=== PATIENT | male | born 1940 | race Caucasian/White ===

== ENCOUNTER 2023-04-02 00:21 | Emergency (ER) | payer MEDICARE ==
[2023-04-02] MEDS ORDERED: Sodium Chloride 0.9% 10 ML Syringe FLUSH PRN (00:28)
[2023-04-02 00:45] LABS: BASOPHILS ABSOLUTE AUTO 0.06 K/uL (0.00-0.10); BASOPHILS PERCENT AUTO 0.7 % (0.1-1.3); EOSINOPHILS ABSOLUTE AUTO 0.32 K/uL (0.00-0.40); EOSINOPHILS PERCENT AUTO 3.8 % (0.0-5.4); HEMATOCRIT 37.5 % (38.4-49.7); IMMATURE GRAN ABSOLUTE AUTO 0.03 K/uL (0.00-0.23); IMMATURE GRAN PERCENT AUTO 0.4 % (0.0-0.7); LYMPHOCYTES ABSOLUTE AUTO 1.47 K/uL (0.8-3.3); LYMPHOCYTES PERCENT AUTO 17.3 % (11.4-47.7); MEAN CORPUSCULAR HEMOGLOBIN 30.5 pg (31.6-35.5); MEAN CORPUSCULAR HGB CONC 34.7 g/dL (31.6-35.5); MONOCYTES ABSOLUTE AUTO 0.71 K/uL (0.20-0.90); MONOCYTES PERCENT AUTO 8.4 % (3.3-12.6); NEUTROPHILS ABSOLUTE AUTO 5.89 K/uL (1.0-7.6); NEUTROPHILS PERCENT AUTO 69.4 % (40.0-78.1); PLATELET COUNT,PLT 166 K/uL (130-375); RED BLOOD CELL COUNT 4.26 M/uL (4.14-5.76); WHITE BLOOD CELL COUNT,WBC 8.5 K/uL (3.2-11.0)
[2023-04-02] MEDS ORDERED: Sodium Chloride 0.9% 1,000 ML IV SCH (01:00)
[2023-04-02 01:07] LABS: A/G RATIO 1.1 (1.2-2.2); ALANINE AMINOTRANSFERASE,ALT 33 U/L (12-78); ALBUMIN 3.7 g/dL (3.4-5.0); ALKALINE PHOSPHATASE 137 U/L (46-116); ASPARTATE AMNIOTRANSFERASE,AST 25 U/L (15-37); BILIRUBIN TOTAL 0.6 mg/dL (0.2-1.0); BLOOD UREA NITROGEN,BUN 18 mg/dL (7-18); CALCIUM 8.6 mg/dL (8.5-10.1); CARBON DIOXIDE,CO2 23 mmol/L (21-32); CHLORIDE,CL 99 mmol/L (100-108); CREATININE 1.2 mg/dL (0.8-1.3); EST CRCL DRUG DOSING (CG) 46.64 mL/min; ESTIMATED GFR 60 mL/min (>60); GLUCOSE RANDOM 117 mg/dL (74-106); POTASSIUM,K 3.7 mmol/L (3.6-5.2); PRO B-TYPE NATRIUR PEPT,BNPPRO 89 pg/mL (5-450); SODIUM,NA 132 mmol/L (140-148); TROPONIN I HIGH SENSITIVITY 11.7 pg/mL (<=60.3)
[2023-04-02 01:09] LABS: ANION GAP 13.7 mmol/L (5.0-14.0)
[2023-04-02 01:19] LABS: APPEARANCE,URINE CLEAR (CLEAR); BILIRUBIN,URINE NEGATIVE (NEGATIVE); COLOR,URINE YELLOW (YELLOW); GLUCOSE,URINE NEGATIVE (NEGATIVE); KETONES,URINE TRACE mg/dL (NEGATIVE); LEUKOCYTE ESTERASE,URINE NEGATIVE (NEGATIVE); NITRITE,URINE NEGATIVE (NEGATIVE); OCCULT BLOOD,URINE NEGATIVE (NEGATIVE); PROTEIN,URINE 100 mg/dL (NEGATIVE); UROBILINOGEN,URINE 0.2 EU/dL (0.2-1.0)
[2023-04-02 01:30] LABS: AMORPHOUS SEDIMENT,URINE NOT SEEN; BACTERIA,URINE FEW; EPITHELIAL CELLS,URINE FEW; MUCUS,URINE FEW; RBC,URINE 0-5 (0-5); WBC,URINE 0-5 (0-5)
== END 2023-04-02 03:27 | disposition home or self-care (01) ==
LOC: JP.ED 00:21
DX: R55 Syncope and collapse (principal); Z79.82 Long term (current) use of aspirin
CPT/HCPCS: 36415; 80053; 81001; 83880; 84484; 85025; 93005; 96360; 96361; 99284; J3490; J7030

== ENCOUNTER 2024-02-09 22:27 | Emergency (ER) | payer MEDICARE ==
[2024-02-09] MEDS ORDERED: Sodium Chloride 0.9% 10 ML Syringe FLUSH PRN (23:02)
[2024-02-09 23:18] LABS: INR 1.1; PROTHROMBIN TIME 11.5 sec (9.2-10.6)
[2024-02-09 23:21] LABS: ALANINE AMINOTRANSFERASE,ALT 84 U/L (12-78); ALBUMIN 3.4 g/dL (3.4-5.0); ALKALINE PHOSPHATASE 125 U/L (46-116); ASPARTATE AMNIOTRANSFERASE,AST 69 U/L (15-37); BILIRUBIN TOTAL 0.5 mg/dL (0.2-1.0); BLOOD UREA NITROGEN,BUN 15 mg/dL (7-18); CALCIUM 8.7 mg/dL (8.5-10.1); CARBON DIOXIDE,CO2 22 mmol/L (21-32); CHLORIDE,CL 98 mmol/L (100-108); CREATININE 1.3 mg/dL (0.8-1.3); EST CRCL DRUG DOSING (CG) 46.43 mL/min; ESTIMATED GFR 54 mL/min (>60); GLUCOSE RANDOM 141 mg/dL (74-106); POTASSIUM,K 3.9 mmol/L (3.6-5.2); PROTEIN TOTAL,TP 6.7 g/dL (6.4-8.2); SODIUM,NA 133 mmol/L (140-148)
[2024-02-09 23:24] LABS: HEMOGLOBIN 10.1 g/dL (12.9-16.9); PLATELET COUNT,PLT 184 K/uL (130-375)
[2024-02-09 23:25] LABS: BAND PERCENT MAN 2 % (5-11); EOSINOPHILS PERCENT MAN 2 % (2-4); LYMPHOCYTES PERCENT MAN 28 % (24-44); MONOCYTES PERCENT MAN 9 % (2-6); SEG NEUTROPHILS PERCENT MAN 58 % (36-66)
[2024-02-09] MEDS: Tenecteplase 50 MG Kit IVPUSH ONE (23:26)
[2024-02-09 23:27] LABS: ANION GAP 16.9 mmol/L (5.0-14.0)
== END 2024-02-09 23:40 | disposition other institution (70) ==
LOC: JP.ED 22:27
DX: I63.9 Cerebral infarction, unspecified (principal); I10 Essential (primary) hypertension; E78.00 Pure hypercholesterolemia, unspecified; Z79.899 Other long term (current) drug therapy; Z88.8 Allergy status to other drugs, medicaments and biological substances
CPT/HCPCS: 36415; 51702; 70450; 80053; 85004; 85018; 85049; 85610; 85730; 93005; 99285; J3101; 93010

== ENCOUNTER 2024-02-25 12:55 | Inpatient (IN) | payer MEDICARE ==
[2024-02-25] MEDS: Sodium Chloride 0.9% 1,000 ML IV ONE (14:10)
[2024-02-25 14:16] LABS: BASOPHILS PERCENT AUTO 0.2 % (0.1-1.3); HEMOGLOBIN 8.9 g/dL (12.9-16.9); IMMATURE GRAN ABSOLUTE AUTO 0.03 K/uL (0.00-0.23); IMMATURE GRAN PERCENT AUTO 0.5 % (0.0-0.7); LYMPHOCYTES ABSOLUTE AUTO 0.99 K/uL (0.8-3.3); MEAN CORPUSCULAR HEMOGLOBIN 25.2 pg (31.6-35.5); MEAN CORPUSCULAR HGB CONC 35.6 g/dL (31.6-35.5); MEAN CORPUSCULAR VOLUME 70.8 fL (81.4-99.0); MONOCYTES ABSOLUTE AUTO 0.81 K/uL (0.20-0.90); MONOCYTES PERCENT AUTO 14.1 % (3.3-12.6); NEUTROPHILS ABSOLUTE AUTO 3.89 K/uL (1.0-7.6); NEUTROPHILS PERCENT AUTO 67.9 % (40.0-78.1); PLATELET COUNT,PLT 80 K/uL (130-375); WHITE BLOOD CELL COUNT,WBC 5.7 K/uL (3.2-11.0)
[2024-02-25 14:18] LABS: BASOPHILS ABSOLUTE AUTO 0.01 K/uL (0.00-0.10)
[2024-02-25 14:38] LABS: A/G RATIO 0.8 (1.2-2.2); ALANINE AMINOTRANSFERASE,ALT 90 U/L (12-78); ALBUMIN 2.8 g/dL (3.4-5.0); ALKALINE PHOSPHATASE 110 U/L (46-116); ASPARTATE AMNIOTRANSFERASE,AST 99 U/L (15-37); BILIRUBIN TOTAL 1.2 mg/dL (0.2-1.0); BLOOD UREA NITROGEN,BUN 19 mg/dL (7-18); CARBON DIOXIDE,CO2 22 mmol/L (21-32); CHLORIDE,CL 84 mmol/L (100-108); CREATININE 1.5 mg/dL (0.8-1.3); ESTIMATED GFR 46 mL/min (>60); GLUCOSE RANDOM 140 mg/dL (74-106); POTASSIUM,K 3.8 mmol/L (3.6-5.2); PROTEIN TOTAL,TP 6.5 g/dL (6.4-8.2)
[2024-02-25 14:44] LABS: C-REACTIVE PROTEIN 16.26 mg/dL (<0.50); TROPONIN I HIGH SENSITIVITY 21.8 pg/mL (<=60.3)
[2024-02-25 14:49] LABS: ANION GAP 14.8 mmol/L (5.0-14.0)
[2024-02-25 14:50] LABS: SODIUM,NA 117 mmol/L (140-148)
[2024-02-25 14:52] LABS: LYMPHOCYTES PERCENT AUTO 17.3 % (11.4-47.7); RED BLOOD CELL COUNT 3.53 M/uL (4.14-5.76)
[2024-02-25] MEDS: Sodium Chloride 0.9% 100 ML IV SCH (15:12)
[2024-02-25] MEDS: Iopamidol 755 Mg/ML 100 ML Bottle IV ONE (15:12)
[2024-02-25 16:03] LABS: LYME AB IgG Negative (Negative)
[2024-02-25 16:04] LABS: LYME AB IgM Positive (Negative)
[2024-02-25] MEDS ORDERED: Magnesium Hydroxide 400 MG/5 ML Susp 30 ML Cup PO PRN (17:30)
[2024-02-25] MEDS ORDERED: Albuterol 0.083% 2.5 MG/3 ML Neb Soln NEB PRN (17:30)
[2024-02-25] MEDS ORDERED: Ondansetron 4 MG Tab.DIS PO PRN (17:30)
[2024-02-25] MEDS ORDERED: oxyCODONE 5 MG Tab PO PRN (17:30)
[2024-02-25] MEDS ORDERED: Ondansetron 4 MG/2 ML SDV IV PRN (17:30)
[2024-02-25] MEDS ORDERED: Sennosides/Docusate Sodium 50-8.6 MG Tab PO PRN (17:30)
[2024-02-25] MEDS: Sodium Chloride 0.9% 1,000 ML IV SCH ×2 (18:13→20:50)
[2024-02-25] MEDS: Doxycycline 100 MG Cap PO SCH (18:16)
[2024-02-25] MEDS: Azithromycin 250 MG Tab PO ONE (18:16)
[2024-02-25] MEDS: Acetaminophen 325 MG Tab PO PRN (18:58)
[2024-02-25 20:16] LABS: CALCIUM 7.4 mg/dL (8.5-10.1); CREATININE 1.4 mg/dL (0.8-1.3); EST CRCL DRUG DOSING (CG) 39.28 mL/min; POTASSIUM,K 3.1 mmol/L (3.6-5.2)
[2024-02-25 20:21] LABS: ANION GAP 13.1 mmol/L (5.0-14.0)
[2024-02-25] MEDS: Atovaquone 750 MG/5 ML Susp 5 ML Packet PO SCH (20:34)
[2024-02-25] MEDS: Carvedilol 12.5 MG Tab PO SCH (20:38)
[2024-02-25] MEDS: Lactobacillus Rhamnosus GG (Probiotic) Cap PO SCH (20:41)
[2024-02-25] MEDS: Potassium Chloride 10 MEQ in Premix Bag 1 BAG IV ONE (21:21)
[2024-02-25] MEDS: Potassium Chloride 20 MEQ Tab.ER PO ONE (21:24)
[2024-02-25] MEDS: Magnesium Sulfate/Water 2 GM in Premix Bag 1 BAG IV SCH (22:32)
[2024-02-26 01:22] LABS: CALCIUM 7.3 mg/dL (8.5-10.1); CREATININE 1.5 mg/dL (0.8-1.3); EST CRCL DRUG DOSING (CG) 36.66 mL/min; POTASSIUM,K 3.1 mmol/L (3.6-5.2)
[2024-02-26 01:28] LABS: ANION GAP 10.1 mmol/L (5.0-14.0)
[2024-02-26 06:05] LABS: HEMATOCRIT 21.9 % (38.4-49.7); HEMOGLOBIN 7.7 g/dL (12.9-16.9); MEAN CORPUSCULAR HEMOGLOBIN 25.3 pg (31.6-35.5); MEAN CORPUSCULAR HGB CONC 35.2 g/dL (31.6-35.5); RED BLOOD CELL COUNT 3.04 M/uL (4.14-5.76); WHITE BLOOD CELL COUNT,WBC 4.6 K/uL (3.2-11.0)
[2024-02-26 06:24] LABS: A/G RATIO 0.7 (1.2-2.2); ALANINE AMINOTRANSFERASE,ALT 99 U/L (12-78); ALBUMIN 2.3 g/dL (3.4-5.0); ALKALINE PHOSPHATASE 116 U/L (46-116); ASPARTATE AMNIOTRANSFERASE,AST 104 U/L (15-37); BILIRUBIN TOTAL 0.8 mg/dL (0.2-1.0); BLOOD UREA NITROGEN,BUN 16 mg/dL (7-18); CALCIUM 7.6 mg/dL (8.5-10.1); CARBON DIOXIDE,CO2 22 mmol/L (21-32); CHLORIDE,CL 95 mmol/L (100-108); CREATININE 1.4 mg/dL (0.8-1.3); EST CRCL DRUG DOSING (CG) 39.28 mL/min; ESTIMATED GFR 50 mL/min (>60); GLUCOSE RANDOM 122 mg/dL (74-106); POTASSIUM,K 3.3 mmol/L (3.6-5.2); PROTEIN TOTAL,TP 5.6 g/dL (6.4-8.2); SODIUM,NA 126 mmol/L (140-148)
[2024-02-26 06:55] LABS: ANION GAP 12.3 mmol/L (5.0-14.0)
[2024-02-26] MEDS: Pantoprazole 40 MG Tab.CR PO SCH (07:54)
[2024-02-26] MEDS: Aspirin 81 MG Tab.Chew PO SCH (08:27)
[2024-02-26] MEDS: Atovaquone 750 MG/5 ML Susp 5 ML Packet PO SCH (08:27)
[2024-02-26] MEDS: Potassium Chloride 20 MEQ Tab.ER PO ONE (08:27)
[2024-02-26] MEDS: Azithromycin 250 MG Tab PO SCH (08:28)
[2024-02-26] MEDS: Clopidogrel 75 MG Tab PO SCH (08:28)
[2024-02-26] MEDS: atorvaSTATin 20 MG Tab PO SCH (08:28)
[2024-02-26 11:16] LABS: IRON,FE 11 ug/dL (65-175); PERCENT FE SATURATION 5 % (20-55); TOTAL IRON BINDING CAPACITY 203 ug/dl (250-450)
[2024-02-26] MEDS: Sodium Ferric Gluconate Cmplex 250 MG in Sodium Chloride 0.9% 100 ML IV ONE (13:33)
[2024-02-26] MEDS ORDERED: Loperamide 2 MG Cap PO PRN (20:17)
[2024-02-27 05:56] LABS: HEMOGLOBIN 7.7 g/dL (12.9-16.9); MEAN CORPUSCULAR HEMOGLOBIN 25.2 pg (31.6-35.5); MEAN CORPUSCULAR VOLUME 72.1 fL (81.4-99.0); RED BLOOD CELL COUNT 3.05 M/uL (4.14-5.76); WHITE BLOOD CELL COUNT,WBC 4.7 K/uL (3.2-11.0)
[2024-02-27 06:10] LABS: CALCIUM 7.7 mg/dL (8.5-10.1); CREATININE 1.2 mg/dL (0.8-1.3); EST CRCL DRUG DOSING (CG) 45.82 mL/min; POTASSIUM,K 3.7 mmol/L (3.6-5.2)
[2024-02-27 06:12] LABS: ANION GAP 13.7 mmol/L (5.0-14.0)
[2024-02-27] MEDS: Sodium Ferric Gluconate Cmplex 250 MG in Sodium Chloride 0.9% 100 ML IV ONE (14:57)
[2024-02-28 06:02] LABS: HEMATOCRIT 24.8 % (38.4-49.7); HEMOGLOBIN 8.4 g/dL (12.9-16.9); MEAN CORPUSCULAR HEMOGLOBIN 24.4 pg (31.6-35.5); MEAN CORPUSCULAR HGB CONC 33.9 g/dL (31.6-35.5); MEAN CORPUSCULAR VOLUME 72.1 fL (81.4-99.0); RED BLOOD CELL COUNT 3.44 M/uL (4.14-5.76); WHITE BLOOD CELL COUNT,WBC 5.3 K/uL (3.2-11.0)
[2024-02-28 06:15] LABS: CALCIUM 8.3 mg/dL (8.5-10.1); CREATININE 1.4 mg/dL (0.8-1.3); EST CRCL DRUG DOSING (CG) 39.28 mL/min; POTASSIUM,K 3.7 mmol/L (3.6-5.2)
[2024-02-28 06:37] LABS: ANION GAP 13.7 mmol/L (5.0-14.0)
[2024-02-28 15:41] LABS: B. BURGDORFERI IGG IMMUNOBLOT Negative (Negative); B. BURGDORFERI IGM IMMUNOBLOT Positive (Negative)
[2024-02-28 22:38] LABS: BABESIA MICROTI BY PCR Not Detected; BABESIA SPECIES BY PCR Not Detected; EHRLICHIA CHAFFEENSIS BY PCR Not Detected; EHRLICHIA EWINGII/CANIS BY PCR Not Detected; EHRLICHIA MURIS-LIKE BY PCR Not Detected
[2024-02-29 01:24] LABS: ANAPLASMA PHAGOCYTOPHILUM PCR Detected
== END 2024-02-28 11:40 | disposition home health service (06) | DRG 868 ==
LOC: JP.ED 12:55 → JP.ICU 16:58
PROVIDERS: ADMIT Internal Medicine; ATTEND Internal Medicine
DX: R06.02 Shortness of breath (principal); A69.20 Lyme disease, unspecified; D69.6 Thrombocytopenia, unspecified; E87.1 Hypo-osmolality and hyponatremia; B60.00 Babesiosis, unspecified; D50.8 Other iron deficiency anemias; I25.10 Atherosclerotic heart disease of native coronary artery without angina pectoris; M19.90 Unspecified osteoarthritis, unspecified site; Z79.899 Other long term (current) drug therapy; Z79.82 Long term (current) use of aspirin; I10 Essential (primary) hypertension; I67.9 Cerebrovascular disease, unspecified; E86.1 Hypovolemia; E78.00 Pure hypercholesterolemia, unspecified; Z88.8 Allergy status to other drugs, medicaments and biological substances; I25.2 Old myocardial infarction; Z79.01 Long term (current) use of anticoagulants; Z98.42 Cataract extraction status, left eye; Z86.73 Personal history of transient ischemic attack (TIA), and cerebral infarction without residual deficits; Z98.41 Cataract extraction status, right eye; Z95.1 Presence of aortocoronary bypass graft
CPT/HCPCS: 36415; 71046 ×2; 71275 ×2; 80053; 83605; 83615; 83735; 83880; 84145; 84484; 85025; 85379; 86140; 86617 ×2; 86618 ×2; 87040 ×2; 87468; 87469; 87484; 87798 ×3; 93005; 96360; 99285; J3490; J7030; Q9967; U0002; 80048; 83550; 84295; 85018; 85027; 97110-GO; 97110-GP; 97161-GP; 97165-GO; 97530-GP; 99222; 99232; 99238; A9270-GY; J2916; J3475; J3480